=== PATIENT | female | born 1985 | race African-American/Black ===

== ENCOUNTER 2019-02-20 18:44 | Emergency (ER) | payer MEDICAID ==
[~2019-02-20] VITALS: Ht 175.3 cm; Wt 145.0 kg
[2019-02-20 19:41] VITALS: BP 134/86
== END 2019-02-20 19:58 | disposition home or self-care (01) ==
LOC: ER 18:44
DX: S51.812D Laceration without foreign body of left forearm, subsequent encounter (principal); X58.XXXD Exposure to other specified factors, subsequent encounter
CPT/HCPCS: 99281